=== PATIENT | female | born 1965 | race Caucasian/White ===

== ENCOUNTER → 2023-06-08 08:07 | Outpatient (REF) | payer BC, SELFPAY | LOC: WDC 08:07 | PROVIDERS: ATTENDING PHYSICIAN Surgery; FAMILY PHYSICIAN Family Medicine | DX: N64.89 Other specified disorders of breast (principal) | CPT/HCPCS: 76642 ==

== ENCOUNTER → 2023-07-10 08:20 | Outpatient (REF) | payer BC, SELFPAY | LOC: HWWDC 08:20 | PROVIDERS: ATTENDING PHYSICIAN Surgery; FAMILY PHYSICIAN Family Medicine | DX: Z12.31 Encounter for screening mammogram for malignant neoplasm of breast (principal) | CPT/HCPCS: 77063; 77067 ==

== ENCOUNTER → 2023-07-17 08:21 | Outpatient (REF) | payer BC, SELFPAY | LOC: WDC 08:21 | PROVIDERS: ATTENDING PHYSICIAN Surgery; FAMILY PHYSICIAN Family Medicine | DX: R92.8 Other abnormal and inconclusive findings on diagnostic imaging of breast (principal) | CPT/HCPCS: 76642 ==

== ENCOUNTER → 2023-10-12 14:40 | Outpatient (REF) | payer BC, SELFPAY | LOC: WDC 14:40 | PROVIDERS: ATTENDING PHYSICIAN Surgery; FAMILY PHYSICIAN Family Medicine | DX: R92.8 Other abnormal and inconclusive findings on diagnostic imaging of breast (principal) | CPT/HCPCS: 76642 ==

== ENCOUNTER → 2024-03-07 13:51 | Outpatient (REF) | payer BC, SELFPAY | LOC: WDC 13:51 | PROVIDERS: ATTENDING PHYSICIAN Surgery; FAMILY PHYSICIAN Family Medicine | DX: R92.8 Other abnormal and inconclusive findings on diagnostic imaging of breast (principal) | CPT/HCPCS: 76642 ==

== ENCOUNTER → 2024-04-13 07:45 | Outpatient (REF) | payer BC, SELFPAY ==
--- NOTE | 2024-04-13 13:45 | OID.BR.INTR ---
OID Breast Navigator - Initial
- -
Date of Contact: 04/13/24
Met with patient. Patient given written information on navigator services available at [facility]. Will follow up as needed per protocol.
== END ==
LOC: WDC 07:45
PROVIDERS: ATTENDING PHYSICIAN Surgery; FAMILY PHYSICIAN Family Medicine
DX: N63.12 Unspecified lump in the right breast, upper inner quadrant (principal)
CPT/HCPCS: 88305; 19083; A4648

== ENCOUNTER 2024-08-24 06:34 | Outpatient (RCR) | payer BC, SELFPAY | END 2024-08-24 23:59 | disposition home or self-care (01) | LOC: RPT 06:34 | PROVIDERS: ATTENDING PHYSICIAN Surgery; FAMILY PHYSICIAN Family Medicine | DX: N64.89 Other specified disorders of breast (principal); Z73.6 Limitation of activities due to disability | CPT/HCPCS: 97140; 97162 ==

== ENCOUNTER 2024-09-07 09:44 | Outpatient (RCR) | payer BC, SELFPAY | END 2024-09-07 23:59 | disposition home or self-care (01) | LOC: RPT 09:44 | PROVIDERS: ATTENDING PHYSICIAN Surgery; FAMILY PHYSICIAN Family Medicine | DX: N64.89 Other specified disorders of breast (principal); Z73.6 Limitation of activities due to disability | CPT/HCPCS: 97110; 97140 ==

== ENCOUNTER 2024-10-03 09:07 | Outpatient (RCR) | payer BC, SELFPAY | END 2024-10-03 23:59 | disposition home or self-care (01) | LOC: RPT 09:07 | PROVIDERS: ATTENDING PHYSICIAN Surgery; FAMILY PHYSICIAN Family Medicine | DX: N64.89 Other specified disorders of breast (principal); Z73.6 Limitation of activities due to disability | CPT/HCPCS: 97110; 97140 ==

== ENCOUNTER 2025-01-02 18:16 | Emergency (ER) | payer BC, SELFPAY ==
[2025-01-02] VITALS (8 sets, daily range): BP systolic 132–210; BP diastolic 85–124; BMI 30.9
--- NOTE | 2025-01-02 20:05 | ED.GENMED ---
History of Present Illness
General
Chief Complaint: Blood Pressure Problem
Source: patient
Time Seen by Provider: 01/02/25 19:52
History of Present Illness
History of Present Illness:
59-year-old female presents to the emergency room for evaluation of elevated blood pressure, bilateral upper extremity tingling. Patient states that she been experiencing headache for the past couple weeks. She associate its onset with being
exposed to marijuana smoke while attending the open. Since then the headaches been continuous. She is taking her blood pressure at home a couple times and has been elevated. Over the past day or so she experienced tingling in bilateral upper
extremities making her concerned that she could be having a stroke. Patient has been taking extra valsartan. She is prescribed 80 mg but has been taking 4 tablets. She denies any focal weakness. The tingling is not unilateral bilateral.
Past History
Past History
ED Past Medical History: HTN and NIDDM
ED Past Surgical History: Cholecystectomy
Patient has exhibited threatening behavior?: No
PSI?: No
Phy Exam
Physical Exam
Physical Exam:
General: Awake, Alert, Oriented X3. No acute distress.
Vitals: Moderately hypertensive
Head: Atraumatic
Eyes: Pupils equal, EOMI
Throat: Airway intact, no exudates
Neck: Trachea midline
Lungs: Clear and equal b/l
Heart: Regular rate, no murmurs
Abd: Soft, Nontender, No pulsatile mass
Neuro: Cranial nerves intact, muscle strength equal bilaterally, cerebellar exam normal
Skin: Warm, dry, no rash
Extremities: pulses equal b/l, no edema
Course
Orders/Labs/Results
Orders:
Orders
01/02/25 18:27
Electrocardiogram (*1) Urgent
Reason for Study: Vertigo / Dizzy
CT Head W/o Iv Contrast Urgent
Comment:
Reason For Exam: high blood pressure
01/02/25 18:28
EKG- Treatment ONCE
01/02/25 20:03
Complete Blood Count/With Diff Urgent
Comprehensive Metabolic Panel Urgent
Troponin I Urgent
01/02/25 20:04
Diphenhydramine [Benadryl] 25 mg IV NOW STA
Metoclopramide [Reglan] 10 mg IV NOW STA
Abnormal Lab Results
01/02/25
20:03
RBC 5.78 H 10^6/uL
(4.20-5.40)
Hgb 16.6 H g/dL
(12.0-16.0)
Hct 48.4 H %
(37.0-47.0)
AST 37 H U/L
(14-36)
01/02/25 20:03
01/02/25 20:03
Vital Signs
Initial and Last Documented VS:
Initial Vital Signs
Temp Pulse Resp BP Pulse Ox
98.0 F 86 18 210/124 98
01/02/25 18:21 01/02/25 18:21 01/02/25 18:21 01/02/25 18:21 01/02/25 18:21
Last Documented Vital Signs
Temp Pulse Resp BP Pulse Ox
98.0 F 73 20 134/85 95
01/02/25 18:21 01/02/25 21:38 01/02/25 21:38 01/02/25 21:39 01/02/25 21:38
MDM/Problems Addressed
Differential Diagnosis Includes:
Migraine headache, tension headache, electrolyte abnormality
MDM/Problems Addressed:
Patient presents to the emergency room with headache, elevated blood pressure at home. Patient's blood pressure has moderated here. Blood pressures been in the 150 systolic. She already increased the dose of her valsartan to 320. Will send a
prescription for hydrochlorothiazide. Headache much improved with migraine cocktail. Stable for discharge and outpatient follow-up
*Radiology
Radiology exam reviewed: radiology read reviewed
*Pulse Oximetry
SaO2: 98
Oxygen Mode of Delivery: Room air
Patient hypoxic: no
*EKG
Interpreted by ED Provider?: Yes
Heart Rate: 76
Rate: normal
Rhythm: sinus
Maxie: normal axis
Interval: normal interval
QRS Pattern: normal QRS
Ischemia: no ischemia
*Imaging Center Manager Interpretation
Rate: normal
Interpretation: normal
Rhythm: sinus
*Critical Care Note
Total Time (30-74mins, 75-104mins- exclusive of procedures): Not Applicable
ED Attending Note
-
Portions of this chart may have been created with voice recognition software.� Occasional wrong word or��sound alike� substitutions may have occurred due to the inherent limitations of voice recognition software.
Discharge Plan
Departure
Patient Disposition: Home (Routine Discharge)
Date of Disposition: 01/02/25
Time of Disposition: 21:16
Patient with high blood pressure during this ER visit?: Yes
Condition: Good
Discharge Problem:
Uncontrolled hypertension, Headache
Instructions: High Blood Pressure (DC), Headaches in adults
Prescriptions:
New
hydrochlorothiazide 12.5 mg tablet
12.5 mg PO DAILY Qty: 30 0RF
No Action
cefdinir 300 mg capsule
300 mg PO BID Qty: 10 0RF
cetirizine [Zyrtec] 10 mg Tablet
10 mg PO HS Qty: 0 0RF
valsartan 80 mg Tablet
80 mg PO DAILY Qty: 0 0RF
zolpidem 10 MG tablet
10 mg PO HS Qty: 0 0RF
bupropion HCl 150 mg Tablet Extended Release 24 Hr
150 mg PO DAILY Qty: 0 0RF
Rybelsus 7 mg Tablet
7 mg PO DAILY Qty: 0 0RF
Referrals:
Luis Mendez DO [Family Provider, Family Practice]
Interventions
Interventions:
*Risk Screen - Suicide Last Done: 01/02/25 20:47
*General Assessment Last Done: 01/02/25 18:21
*Neglect/Abuse Screening Last Done: 01/02/25 20:47
*ED- Fall Risk Assessment Last Done: 01/02/25 20:47
*ED COVID-19 Vaccine History Last Done: 01/02/25 20:47
*Nursing Disposition Last Done: 01/02/25 21:48
ED- Cardiac Assessment Last Done: 01/02/25 20:47
ED- Neurological Assessment Last Done: 01/02/25 20:47
ED- Pulmonary Assessment Last Done: 01/02/25 20:47
Discharge Date and Time
Discharge Date/Time: 01/02/25 21:48
Print Language: SLOVENIAN
[2025-01-02 20:19] LABS: Hematocrit 48.4 % (37.0-47.0); Hemoglobin 16.6 g/dL (12.0-16.0); Mean Corp Hgb Conc. 34.3 g/dL (33.0-37.0); Mean Corpuscular Volume 83.7 fL (81.0-99.0); Nucleated Red Blood Cells % 0 %; Platelet Count 265 10^3/uL (130-400); Red Cell Dist. Width 13.4 % (11.5-14.5)
[2025-01-02 20:36] LABS: ALT (SGPT) 28 U/L (0-35); AST (SGOT) 37 U/L (14-36); Albumin 4.9 g/dl (3.5-5.0); Alkaline Phosphatase 58 U/L (38-126); Blood Urea Nitrogen 13 mg/dl (7-17); Calcium 9.8 mg/dl (8.4-10.2); Carbon Dioxide 26 mmol/L (22-30); Chloride 103 mmol/L (98-107); Glucose 86 mg/dl (70-99); Potassium 4.0 mmol/L (3.5-5.1); Sodium 139 mmol/L (135-145); Total Protein 7.6 g/dl (6.3-8.2); eGFR > 60.00
[2025-01-02] MEDS: BENADRYL 25 MG IV (20:36)
[2025-01-02] MEDS: REGLAN 10 MG IV (20:36)
[2025-01-02 20:47] LABS: Troponin I < 0.012 ng/ml
== END 2025-01-02 21:48 | disposition home or self-care (01) ==
LOC: EMR 18:16
PROVIDERS: Emergency Medicine; EMERGENCY PHYSICIAN Emergency Medicine; FAMILY PHYSICIAN Family Medicine
DX: I10 Essential (primary) hypertension (principal); E11.9 Type 2 diabetes mellitus without complications; Z79.84 Long term (current) use of oral hypoglycemic drugs
CPT/HCPCS: 99284; 96374; 96375; 70450; 80053; 84484; 85025; 93005

== ENCOUNTER → 2025-04-21 12:07 | Outpatient (REF) | payer BC, SELFPAY | LOC: DHSLP 12:07 | PROVIDERS: ATTENDING PHYSICIAN Internal Medicine Hematology & Oncology; FAMILY PHYSICIAN Family Medicine | DX: G47.33 Obstructive sleep apnea (adult) (pediatric) (principal); R09.02 Hypoxemia | CPT/HCPCS: 95810 ==